=== PATIENT | male | born 1950 | race Caucasian/White ===

== ENCOUNTER 2025-02-02 05:30 | Day surgery (SDC) | payer OTHER ==
[2025-01-25 11:18] VITALS: BP 160/90
[~2025-02-02] VITALS: Ht 165.1 cm; Wt 70.8 kg
[~2025-02-02 05:30] MED LIST: ATORVASTATIN CA10 MG PO; COZAAR100 MG PO; FARXIGA10 MG PO; GRALISE600 MG; PHENTERMINE; TAMS0.4C PO; ZETIA10 MG PO
[2025-02-02] MEDS ORDERED: DIBUCAINE 30 GM TUBE RECTAL ONE (08:15)
[2025-02-02] MEDS ORDERED: BUPIVACAINE HCL/PF 0.25% 30ML VIAL InF ONE (08:15)
[2025-02-02] MEDS ORDERED: METRONIDAZOLE/SODIUM CHLORIDE 500 MG/100 ML PIGGYBACK IV ONE (08:15)
[2025-02-02] MEDS ORDERED: POVIDONE-IODINE 118 ML BOTT TOP ONE (08:15)
[2025-02-02] MEDS ORDERED: HEMOSTATIC MATRIX 1 KIT KIT TOP ONE (08:15)
[2025-02-02] MEDS ORDERED: LIDOCAINE HCL 1%/EPINEPHRINE 10 ML VIAL IJ ONE (08:15)
[2025-02-02] MEDS ORDERED: CEFTRIAXONE SODIUM 2,000 MG VIAL IV ONE (08:15)
[2025-02-02] MEDS ORDERED: TAMSULOSIN HCL 0.4 MG CAP PO ONE (12:30)
[2025-02-02] MEDS ORDERED: OXYCODONE HCL5 MG PO (12:41)
== END 2025-02-02 15:25 | disposition home or self-care (01) ==
LOC: CIR.AMB 05:30
PROVIDERS: ATTEND Surgery
DX: K64.2 Third degree hemorrhoids (principal); K64.4 Residual hemorrhoidal skin tags; K62.5 Hemorrhage of anus and rectum